=== PATIENT | female | born 1975 | race Asian ===

== ENCOUNTER 2017-09-29 08:00 | Outpatient (CLI) | payer OTHER ==
[2017-09-29 08:28] LABS: % BASOPHILS 0.5 % (0.0-2.0); % EOSINOPHILS 3.5 % (0.0-5.0); % LYMPHOCYTES 35.3 % (20.0-50.0); % MONOCYTES 7.3 % (2.0-10.0); % NEUTROPHILS 53.4 % (40.0-80.0); EOSINOPHILE ABSOLUTE 0.1 Th/cmm (0.1-0.4); HEMOGLOBIN 12.6 gm/dL (12-16); LYMPHOCYTE ABSOLUTE 1.1 Th/cmm (1.5-3.0); MEAN CORPUSCULAR HEMOGLOBIN 31.8 pg (27.0-31.0); MEAN CORPUSCULAR HGB CONC 34.1 pg (28.0-36.0); MEAN PLATELET VOLUME 7.4 fl; MONOCYTE ABSOLUTE 0.2 Th/cmm (0.3-1.0); NEUTROPHILE ABSOLUTE 1.8 Th/cmm (1.8-8.0); PLATELET COUNT 174 Th/cmm (150-400); RED BLOOD COUNT 3.98 Mil/cmm (3.80-5.10); RED CELL DISTRIBUTION WIDTH 11.7 % (11.5-20.0)
[2017-09-29 08:36] LABS: WHITE BLOOD COUNT 3.2 Th/cmm (4.8-10.8)
[2017-09-29 08:48] LABS: ALB/GLOB RATIO 1.6 (1.0-1.8); ALBUMIN 4.6 gm/dL (3.7-5.3); ALKALINE PHOSPHATASE 51 U/L (34-104); ANION GAP 9.2 (7.0-16.0); BILIRUBIN,TOTAL 0.4 mg/dL (0.3-1.0); BUN - UREA NITROGEN 10 mg/dL (7-25); CALCIUM SERUM 9.4 mg/dL (8.6-10.3); CARBON DIOXIDE 27.4 mEq/L (21.0-31.0); CHLORIDE 103 mEq/L (98-107); CHOLESTEROL 205 mg/dL (<200); CREATININE - SERUM 0.6 mg/dL (0.6-1.2); GFR AFRICAN-AMERICAN > 60.0 ml/min (>90); GFR NON AFRICAN-AMERICAN > 60.0 ml/min; GLUCOSE 94 mg/dL (70-105); HDL -HIGH DENSITY LIPOPROTEIN 48 mg/dL (23-92); POTASSIUM SERUM 3.6 mEq/L (3.5-5.1); SGOT 19 U/L (13-39); SGPT/ALT 19 U/L (7-52); SODIUM SERUM 136 mEq/L (136-145); TOTAL PROTEIN,SERUM 7.4 gm/dL (6.0-8.3); TRIGLYCERIDES 289 mg/dL (<150)
[2017-09-29 09:24] LABS: URINE MICROSCOPIC INDICATED? YES; URINE SOURCE RANDOM
[2017-09-29 09:46] LABS: URINE BILIRUBIN NEGATIVE (NEGATIVE); URINE BLOOD SMALL (NEGATIVE); URINE GLUCOSE (UA) NEGATIVE (NEGATIVE); URINE KETONE NEGATIVE (NEGATIVE); URINE LEUKOCYTE ESTERASE LARGE (NEGATIVE); URINE NITRATE NEGATIVE (NEGATIVE); URINE PROTEIN NEGATIVE (NEGATIVE); URINE UROBILINOGEN 0.2 E.U./dL (0.2 - 1.0)
[2017-09-29 09:49] LABS: URINE CLARITY CLEAR (CLEAR); URINE COLOR YELLOW
[2017-09-29 10:04] LABS: URINE BACTERIA 1+ /hpf (NONE SEEN); URINE EPITHELIAL CELLS MODERATE /lpf (FEW)
== END 2017-09-29 08:18 | disposition home or self-care (01) ==
LOC: LAB 08:00
PROVIDERS: ATTEND Internal Medicine
DX: Z00.01 Encounter for general adult medical examination with abnormal findings (principal)
CPT/HCPCS: 36415-UA; 80053-TC; 80061-TC; 81001-TC; 82306-90; 84436-90; 84443-TC; 84480-90; 85025-TC; 87086-90

== ENCOUNTER 2017-09-29 13:32 | Outpatient (CLI) | payer OTHER ==
--- NOTE | 2017-09-30 09:01 | Diagnostic Imaging Report ---
Ultrasound pelvis HISTORY: Pain. History of uterine fibroids and cervix polyp removal, per patient. LMP 09/22/2017. Beta hCG is not available. COMPARISON: None Technique: Longitudinal and transverse sonographic sector images of the pelvis were obtained transabdominally only. Note, patient refused transvaginal images. Findings: The uterus measures 8.4 x 4.6 x 4.3 cm. There is a heterogeneous lesion seen along the lower body of the uterus possibly extending the cervix measuring 2.5 x 2.3 x 2.1 cm. The endometrial echo complex measures 1 cm. The right ovary measures 2.2 x 2 cm. The left ovary measures 2.8 x 1.8 cm demonstrating small follicular cystic changes measuring up to 9 mm. No evidence of free fluid in the pelvis. IMPRESSION: Heterogeneous uterus. There is a indeterminate lesion along the lower uterine body/upper cervix region. This may represent a uterine fibroid or cervix mass. Clinical correlation and further assessment of this finding is recommended. Note exam was limited as patient refused transvaginal images. The endometrium measures 1 cm, correlate with menstrual cycle. No evidence of free fluid in the pelvis.
== END 2017-09-29 13:50 ==
LOC: RAD 13:32
PROVIDERS: ATTEND Internal Medicine
DX: N85.8 Other specified noninflammatory disorders of uterus (principal)
CPT/HCPCS: 76856-TC

== ENCOUNTER 2017-10-27 12:18 | Outpatient (CLI) | payer OTHER | END 2017-10-27 12:30 | disposition home or self-care (01) | LOC: LAB 12:18 → EEVIPCON 12:18 → LAB 12:30 | PROVIDERS: ATTEND Internal Medicine | DX: R76.12 Nonspecific reaction to cell mediated immunity measurement of gamma interferon antigen response without active tuberculosis (principal) | CPT/HCPCS: 82306-90; 86480-90 ==